=== PATIENT | male | born 1985 | race Two or more races ===

== ENCOUNTER 2020-06-21 22:51 | Emergency (ER) | payer MEDICAID ==
[~2020-06-21] VITALS: Ht 182.9 cm; Wt 99.5 kg
[2020-06-21 22:53] VITALS: BP 146/90
[2020-06-21] MEDS ORDERED: CEFTRIAXONE 250 MG IM ONE (23:00)
[2020-06-21] MEDS ORDERED: AZITHROMYCIN 500 MG TABLET PO ONE (23:00)
--- NOTE | 2020-06-21 23:35 | NUR ---
URINE SENT FOR TESTING. PT REFUSING MEDICATIONS AT THIS TIME, PT AMBULATED STERADY TO [facility] DESK.
== END 2020-06-21 23:41 | disposition home or self-care (01) ==
LOC: ED 23:15
DX: Z20.2 Contact with and (suspected) exposure to infections with a predominantly sexual mode of transmission (principal)
CPT/HCPCS: 87491; 87591; 99283